=== PATIENT | female | born 1985 | race Caucasian/White ===

== ENCOUNTER 2022-04-17 13:41 | Outpatient (CLI) | payer OTHER | END 2022-04-17 13:42 | disposition home or self-care (01) | LOC: CSHMAMMO 13:41 | PROVIDERS: ATTEND Family Medicine | DX: N60.11 Diffuse cystic mastopathy of right breast (principal); N60.12 Diffuse cystic mastopathy of left breast | CPT/HCPCS: 77066; G0279 ==